=== PATIENT | female | born 1985 | race Caucasian/White ===

== ENCOUNTER → 2017-12-25 | Outpatient (CLI) | payer BC ==
[~2017-12-25] MED LIST: ALDOMET 250MG250 MG PO; IRON325 M1 PO; MOTRIN 600600 MG/TAB PO; NORMODYNE100 MG PO; PERCOCET 325 MG1 TA2 PO; PRENATAL1 TA1 PO; SINGULAIR 110 MG/TAB PO
== END ==
LOC: MC.RAD 14:15
DX: R59.0 Localized enlarged lymph nodes (principal); N64.4 Mastodynia; M79.602 Pain in left arm

== ENCOUNTER → 2021-07-24 | Outpatient (CLI) | payer BC | LOC: MC.RAD 07:00 | DX: R59.0 Localized enlarged lymph nodes (principal) ==